=== PATIENT | male | born 1970 | race Hispanic/Latino ===

== ENCOUNTER → 2021-07-19 | Outpatient (CLI) | payer BC ==
[2021-07-19 12:27] LABS: CREATININE 0.8 mg/dL (0.5-1.5)
== END | disposition home or self-care (01) ==
LOC: LAB 11:46
PROVIDERS: ATTEND Otolaryngology Otology & Neurotology
DX: H81.4 Vertigo of central origin (principal)
CPT/HCPCS: 36415; 82565; 84520

== ENCOUNTER → 2021-07-20 | Outpatient (CLI) | payer BC ==
[~2021-07-20] MED LIST: GADOTERATE MEGLUMINE 10 MMOL/20 ML VIAL IV ONE
== END | disposition home or self-care (01) ==
LOC: RAH 08:52
PROVIDERS: ATTEND Otolaryngology Otology & Neurotology
DX: H81.4 Vertigo of central origin (principal); J32.4 Chronic pansinusitis
CPT/HCPCS: 70553; A9575